=== PATIENT | male | born 1990 | race Caucasian/White ===

== ENCOUNTER 2023-01-24 15:19 | Emergency (ER) | payer OTHER, SELFPAY ==
--- NOTE | 2023-01-24 15:15 | DI.RAD_ITS ---
Exam(s) XR CHEST 2V PA LATERAL EXAM: XR CHEST 2V PA LATERAL CLINICAL HISTORY: RIB PAIN TECHNIQUE: 2D digital imaging was performed. COMPARISON: No exams were available for comparison FINDINGS: Lateral views extremely limited due to patient arm positioning. Leads overlie the chest. HEART: Normal size. Aorta: Not dilated. PULMONARY VASCULATURE: Normal. LUNGS: The lungs appear clear on the frontal view.. PLEURAL SPACE: No pleural effusion or pneumothorax. BONE:Unremarkable for age. Soft tissues: Unremarkable. IMPRESSION: No acute abnormality. DATA REPOSITORY: RADIATION DOSE DELIVERED:
--- NOTE | 2023-01-24 15:15 | DI.CT_ITS ---
Exam(s) CT CAROTID NECK CTA EXAM: CT CAROTID NECK CTA CLINICAL HISTORY: HANGING. TECHNIQUE: Imaging Protocol: Axial CT angiography was performed with multi-slice acquisition and mul ti-planar and/or 3D reconstructions. CONTRAST MATERIAL: Intravenous: Omnipaque 350 Contrast volume:structured data in ml COMPARISON: CR,XR XR CHEST 2V PA LATERAL from 01/24/2023 FINDINGS: Common Carotid: Right: No dissection, occlusion or significant stenosis. Left: No dissection, occlusion or significant stenosis. External Carotid: Right: No dissection, occlusion or significant stenosis. Left: No dissection, occlusion or significant stenosis. Internal Carotid: Right: No dissection, occlusion or significant stenosis. Left: No dissection, occlusion or significant stenosis. Vertebral Artery: Right: No dissection, occlusion or significant stenosis. Left: No dissection, occlusion or significant stenosis. Basilar Artery: No aneurysm, occlusion or significant stenosis. Lung Apices: Normal. Bones: Normal. Soft Tissues: Normal. IMPRESSION: Normal CTA of the neck. No evidence of fracture or vascular injury. RADIATION DOSE DELIVERED: Total DLP Total DLP DATA REPOSITORY: All CT scans at this facility are submitted to the National Radiology Data Registry (NRDR) Dose Index Registry (DIR) with the [employer] (A[employer]). RADIATION OPTIMIZATION: All CT scans at this facility use at least one of these dose optimization te chniques: automated exposure control; mA and/or kV adjustment per patient size (includes targeted exa ms where dose is matched to clinical indication); or iterative reconstruction.
[2023-01-24 15:34] VITALS: BP 131/86; PULSE 78; RESP 13; TEMP 37.1; O2SAT 100
--- NOTE | 2023-01-24 15:43 | ED.GENADUL_ITS ---
Discharge Plan Disposition [facility] Disposition: [facility] Condition: Stable Discharge Details Clinical Impression: Hanging, Rib contusion, Suicidal behavior ED Provider: Cristel Maya Home Meds and New Rx's Prescriptions: No Action buprenorphine-naloxone [Suboxone] 4-1 mg film 1 film sublingual DAILY Discharge Instructions Instructions: Help Prevent Suicide (ED) Additional Instructions: Patient has been cleared after his suicide attempt. Please place the patient on suicide watch and precautions. Patient should be evaluated by mental health services urgently and prior to release from care home. Medical Decision Making Emergent evaluation of hanging incident. Patient also arrives awake and alert, there are no signs of trauma on my physical examination. Given the unclear nature and possible loss of consciousness, I will send for CTA to evaluate. Patient is refusing to keep his c-collar on. A chest x-ray was obtained, there are no signs of pulmonary contusion or rib fracture. The CTA does not demonstrate any carotid injury or dissection. The patient has no signs of alcohol withdrawal. At this time he is in police custody and is medically cleared to return to care home. I have advised that they placed the patient on suicide precautions and suicide watch. And they have mental health services available and that they should evaluate the patient prior to being released from care home Medical Records Medical records reviewed: Yes I reviewed the patient's medical records. Lab Data Lab results reviewed: Yes I reviewed the patient's lab results. HPI General Date/Time Provider Initiated Documentation: 01/24/23 15:25 . HPI Narrative: 32-year-old female with past medical history of alcohol abuse presents for evaluation from the care home facility after a hanging incident. Patient wrapped sheets around his neck and jumped off the top bunk which was approximately 5 feet. He was found on the ground of the cell awake alert and speaking. He apparently hit his side on the bunk on the way down. Patient is unsure if he lost consciousness during this event. He denies any voice change. Reports some pain with swallowing. Denies any neck pain. Reports pain on his left back. He reports that he is a daily alcohol user, last drink last night. Related Data Home Medications Medication Instructions Recorded Confirmed buprenorphine 4 mg-naloxone 1 mg 1 film sublingual DAILY 01/24/23 01/24/23 sublingual film (Suboxone) Allergies Allergy/AdvReac Type Severity Reaction Status Date / Time No Known Allergies Allergy Unverified 01/24/23 15:35 General Stated Complaint: Suicide-Atempt EDUARDO: 2 PFSH All Active Problems Suicidal behavior (Acute) Rib contusion (Acute) Hanging (Acute) Social History Smoking/Tobacco Use Status: Current every day Tobacco Type: cigarettes Smoking risk assessment performed?: Yes Alcohol Intake: current Alcohol Intake frequency: 3 or more drinks per day Alcohol type: hard liquor Drug use: Daily Substance use type: crack/cocaine Details: last ETOH last night, last cocaine 1 week ago Housing: other Exam Narrative Exam Narrative: Review of Systems: All systems reviewed & are unremarkable except as noted in HPI and below: CONSTITUTIONAL: Alert and oriented Well-developed, no acute distress HEENT: NACT EYES: PERRL, no conjunctival injection EARS: no external abnormality NOSE nares patent MOUTH Moist MM NECK: Symmetric, trachea midline, No thyromegaly , no crepitus, no signs of trauma or strangulation injury. C-collar in place THROAT oropharynx clear Normal phonation CVS: RRR, No murmurs or gallops. Peripheral pulses 2+ and equal in all extremities Brisk capillary refill in all extremities. No peripheral edema No signs of bruising or chest wall trauma RESP: Unlabored respiratory effort, Clear to auscultation bilaterally No wheezes rales or rhonchi GI: Soft, Nontender, Nondistended, No organomegaly MSK: Extremities with full range of motion, no deformity or TTP SKIN: Warm, Dry. No rashes or lesions. NEURO: No focal neurologic deficits. floors buffer II-XII grossly intact Sensation grossly intact Normal strength throughout PSYCH: Appropriate mood and affect Course Vital Signs Vital signs: Vital Signs Temperature 37.1 C 01/24/23 15:34 Pulse 78 01/24/23 15:34 Respiratory Rate 13 01/24/23 15:34 Blood Pressure 131/86 01/24/23 15:34 Pulse Oximetry 100 01/24/23 15:34 Temperature 37.1 C 01/24/23 15:34 Temperature Source Oral 01/24/23 15:34 Pulse 78 01/24/23 15:34 Respiratory Rate 13 01/24/23 15:34 Respiratory Effort Normal, Non-Labored 01/24/23 15:36 Blood Pressure 131/86 01/24/23 15:34 Blood Pressure Position Sitting 01/24/23 15:34 Pulse Oximetry 100 01/24/23 15:34 Oxygen Delivery Method Room Air 01/24/23 15:34 Oxygen Flow Rate 0 01/24/23 15:34 Pain Level 7 01/24/23 15:34 Lab/Test Results Lab/Test Results: Laboratory Tests Range/Units 01/24/23 01/24/23 15:25 18:25 Troponin I Cancelled Cancelled PAWSS Have you Been Recently Intoxicated or Drunk Within the Last 30 days?: Yes Have you Ever Experienced Previous Episodes of Alcohol Withdrawal?: Yes Have you ever Experienced Withdrawal Seizures?: Yes Have you ever Experienced Delirium Tremens(DT)s?: Yes Have you ever undergone Alcohol Rehabilitation Treatment (i.e, inpt ot outpatien t treatment programs)?: Yes Have you ever Experienced Blackouts?: Yes Have you ever Combined Alcohol with other Downers within the last 90 days?: Yes Have you ever Combined Alcohol with any other Substance of Abuse during the last 90 days?: Yes Positive Blood Alcohol level on Presentation? [PCS.BAL]: No Evidence of Increased Autonomic Activity (i.e. HR>120, tremor, sweating, agitation, nausea)?: No Result: 8
[2023-01-24 15:57] LABS: Abs Immature Grans 0.08 10^3/uL (0.0-0.06); Absolute Basophil Count 0.07 10^3/uL (0.0-0.2); Absolute Eosinophil Count 0.13 10^3/uL (0.0-0.7); Absolute Lymphocyte Count 1.01 10^3/uL (1.2-3.4); Absolute Monocyte Count 0.55 10^3/uL (0.1-0.8); Absolute Neutrophil Count 5.58 10^3/uL (1.2-6.7); Basophils % 0.9; Eosinophils % 1.8; HCT 50.1 % (40.0-50.0); HGB 17.1 g/dL (13.5-17.5); Immature Grans % 1.1; Lymphocytes % 13.6; MCH 28.6 pg (27.0-33.0); MCHC 34.1 % (32.0-36.0); MCV 84 fL (80-95); MPV 9.9 fL (8.0-11.0); Monocytes % 7.4; Neutrophils % 75.2; Platelet Count 229 10^3/uL (130-400); RBC 5.97 10^6/uL (4.36-5.78); RDW 13.2 % (11.8-14.1); RDW-SD 40.9 fL; WBC 7.42 10^3/uL (4.4-10.8)
[2023-01-24] MEDS: Omnipaque 350 MG/ML 100 ML BTL IJ (15:57)
[2023-01-24] MEDS: Normal Saline - Diluent 50 ML VIAL IJ (15:58)
[2023-01-24 16:06] LABS: ALT 195 U/L (16-63); AST 73 U/L (15-37); Albumin 3.7 g/dL (3.4-5.0); Alkaline Phosphatase 63 U/L (46-116); BUN 15 mg/dL (7-18); Bilirubin, Total 0.3 mg/dL (0.2-1.0); CREATININE 0.8 mg/dL (0.70-1.30); Calcium 9.4 mg/dL (8.5-10.1); Chloride 103 mmol/L (98-107); Estimated GFR 121.34 (mL/min/1.73m2); Glucose 91 mg/dL (74-106); Potassium 4.5 mmol/L (3.5-5.1); Sodium 138 mmol/L (136-145); Total Protein 7.7 g/dL (6.4-8.2)
--- NOTE | 2023-01-24 16:53 | DI.VRAD_ITS ---
PROCEDURE INFORMATION: Exam: XR Chest Exam date and time: 01/24/2023 4:09 PM Age: 32 years old Clinical indication: Screening exam; Other screening; Patient HX: Suicide attempt, hanging TECHNIQUE: Imaging protocol: Radiologic exam of the chest. Views: 2 views. COMPARISON: CT CAROTID NECK CTA 01/24/2023 3:56 PM FINDINGS: Lungs: Unremarkable. No consolidation. Pleural spaces: Unremarkable. No pleural effusion. No pneumothorax. Heart/Mediastinum: Unremarkable. No cardiomegaly. Bones/joints: Unremarkable. IMPRESSION: No acute findings. Dictated and Authenticated by: Juan Ramon Bennett MD. Ordering:[facility] Francesco Johnson MD
--- NOTE | 2023-01-24 16:58 | DI.VRAD_ITS ---
PROCEDURE INFORMATION: Exam: CTA Neck With Contrast Exam date and time: 01/24/2023 3:56 PM Age: 32 years old Clinical indication: Screening exam; Suicide attempt TECHNIQUE: Imaging protocol: Computed tomographic angiography of the neck with contrast. Exam focused on the cervical segments of the vasculature. 3D rendering (Not supervised by radiologist): MIP and/or 3D reconstructed images were created by the technologist. COMPARISON: No relevant prior studies available. FINDINGS: Right common carotid artery: Right common carotid artery is widely patent from origin through carotid bulb. Right internal carotid artery: Right internal carotid artery is widely patent from origin through skull base. Right external carotid artery: No occlusion or stenosis of the origin. Left common carotid artery: Left common carotid artery is widely patent from origin to bulb. Left internal carotid artery: Left internal carotid artery is widely patent from origin through skull base foramen. Left external carotid artery: No occlusion or stenosis of the origin. Right vertebral artery: Right vertebral artery is mildly dominant and widely patent. Left vertebral artery: Left vertebral artery is non dominant and widely patent. Aorta: Aortic arch is unremarkable in appearance. Soft tissues: Soft tissues of the neck are unremarkable. No zhanna hematoma. No soft tissue swelling. No gas or foreign body. Bones/joints: Degenerative cervical spine features. No fracture. No dislocation. Lungs: Lung apices are clear. IMPRESSION: 1. Bilateral carotid and vertebral arteries are patent. No acute traumatic change. 2. Mild degenerative cervical spine changes. No fracture or dislocation. 3. Soft tissues of the neck are unremarkable. No zhanna swelling, foreign body, or soft tissue emphysema. 4. Lung apices are clear. REFERENCES: NASCET CRITERIA. The degree of stenosis in the cervical segment of the internal carotid artery is based on NASCET criteria. Normal is no stenosis. Mild is less than 50% stenosis. Moderate is 50-69% stenosis. Severe is 70% to 99% stenosis. Total occlusion is no detectable patent lumen. Dictated and Authenticated by: Juan Ramon Bennett MD. Ordering:[facility] Francesco Johnson MD
--- NOTE | 2023-01-24 17:48 | NUR.NOTE ---
Nursing Note: Pt remained on clinical research monitor and pulse ox during entire course of stay in ED. Vitals were accidently deleted from monitor prior to printing for documentation. No alarms or concerning vitals while here
== END 2023-01-24 17:46 ==
LOC: ER 20:07
PROVIDERS: Emergency Provider Emergency Medicine
DX: T14.91XA Suicide attempt, initial encounter (principal); S20.222A Contusion of left back wall of thorax, initial encounter; F17.210 Nicotine dependence, cigarettes, uncomplicated; X83.8XXA Intentional self-harm by other specified means, initial encounter; Y93.89 Activity, other specified; Y92.148 Other place in prison as the place of occurrence of the external cause
CPT/HCPCS: 36415; 70498; 80053; 99285; 71046; 84484; 85025; 99284; J3490

== ENCOUNTER 2023-01-25 15:22 | Emergency (ER) | payer BC, SELFPAY ==
[2023-01-25 15:24] VITALS: BP 112/86; PULSE 88; RESP 15; TEMP 36.6; O2SAT 100
--- NOTE | 2023-01-25 15:41 | ED.GENADUL_ITS ---
Discharge Plan Disposition Patient Disposition: Home Discharge Details Clinical Impression: Housing instability Primary Care Provider: Unknown,Unknown ED Provider: Cristel Maya Home Meds and New Rx's Prescriptions: No Action buprenorphine-naloxone [Suboxone] 4-1 mg film 1 film sublingual DAILY Discharge Instructions Additional Instructions: please call 211 to attempt to get housing resources Medical Decision Making Emergent evaluation of patient requesting resources. At this time he has been released from halfway. There is no concern for psychiatric complaint. He denies suicidal or homicidal ideation. He is not requesting psychiatric evaluation or placement. I discussed with our care managers and unfortunately there are no resources for person with the circumstances other than 211. He was advised to call and make a self-referral. He was provided a dinner tray. And he will be discharged in good condition Medical Records Medical records reviewed: Yes I reviewed the patient's medical records. HPI General Date/Time Provider Initiated Documentation: 01/25/23 15:40 . HPI Narrative: 32-year-old gentleman with past medical history including chronic alcohol abuse presents requesting housing. He is was evaluated yesterday in the emergency department after an attempted hanging in halfway. He was medically cleared and returned to halfway. He was released from halfway today and states that he was dropped off here because he cannot go back to [facility] where he was previously staying for rehab. Patient states that he lives 4 hours away and does not have a way to get home. He states that he does not know where to go. He states that he does not want to use this place as a hotel and is just asking for help. Related Data Home Medications Medication Instructions Recorded Confirmed buprenorphine 4 mg-naloxone 1 mg 1 film sublingual DAILY 01/24/23 01/25/23 sublingual film (Suboxone) Allergies Allergy/AdvReac Type Severity Reaction Status Date / Time No Known Allergies Allergy Unverified 01/25/23 15:40 General Stated Complaint: PsychEval EDUARDO: 2 PFSH All Active Problems Housing instability (Acute) Suicidal behavior (Acute) Rib contusion (Acute) Hanging (Acute) Social History Smoking/Tobacco Use Status: Current every day Tobacco Type: cigarettes Smoking risk assessment performed?: Yes Alcohol Intake: current Alcohol Intake frequency: 3 or more drinks per day Alcohol type: hard liquor Drug use: Daily Substance use type: crack/cocaine Details: last ETOH last night, last cocaine 1 week ago Housing: other Exam Narrative Exam Narrative: Review of Systems: All systems reviewed & are unremarkable except as noted in HPI and below Well-developed, no acute distress NACT PERRL, normal conjunctiva RRR Unlabored respiratory effort Nondistended abdomen Extremities w/o deformity, no cyanosis, no edema No rashes or lesions. no focal neurologic deficits Appropriate mood and affect Denies suicidal ideation or homicidal ideation Course Vital Signs Vital signs: Vital Signs Temperature 36.6 C 01/25/23 15:24 Pulse 88 01/25/23 15:24 Respiratory Rate 15 01/25/23 15:24 Blood Pressure 112/86 01/25/23 15:24 Pulse Oximetry 100 01/25/23 15:24 Temperature 36.6 C 01/25/23 15:24 Temperature Source Oral 01/25/23 15:24 Pulse 88 01/25/23 15:24 Respiratory Rate 15 01/25/23 15:24 Respiratory Effort Normal 01/25/23 15:37 Blood Pressure 112/86 01/25/23 15:24 Blood Pressure Position Sitting 01/25/23 15:24 Pulse Oximetry 100 01/25/23 15:24 Oxygen Delivery Method Room Air 01/25/23 15:24 Oxygen Flow Rate 0 01/25/23 15:24 Pain Level 0 01/25/23 15:24 PAWSS Have you Been Recently Intoxicated or Drunk Within the Last 30 days?: Yes Have you Ever Experienced Previous Episodes of Alcohol Withdrawal?: Yes Have you ever Experienced Withdrawal Seizures?: Yes Have you ever Experienced Delirium Tremens(DT)s?: Yes Have you ever undergone Alcohol Rehabilitation Treatment (i.e, inpt ot outpatient treatment programs)?: Yes Have you ever Experienced Blackouts?: Yes Have you ever Combined Alcohol with other Downers within the last 90 days?: Yes Have you ever Combined Alcohol with any other Substance of Abuse during the last 90 days?: Yes Result: 8
--- OUTSIDE RECORDS SUMMARY | 2023-01-25 17:10 | XMS_ITS | Continuity of Care Document ---
Author Name Unknown Organization [facility] Address Unknown Care Team Providers Care Senior Net Software Developer Name Role Phone No Local PCP, No Local PCP Primary Care Physicia n Unavailable Encounter Date(s): 01/19/23 - 01/19/[address] [id number] Encounter Diagnosis Polysubstance dependence(Discharge Diagnosis) - 01/19/23 Alcohol dependence(Discharge Diagnosis) - 01/19/23 Discharge Disposition: Home or Self Care Attending Physician: KAILEE WU MD Admitting Physician: KAILEE WU MD Allergies, Adverse Reactions, Alerts No Known Medication Allergies Medications buprenorphine-naloxone 4 mg-1 mg sublingual film 1 ea, SL, Daily, 0 Refill(s) Start Date: 01/19/23 Status: Ordered Mental Status 01/19/23 Orientation Assessment Oriented x 4 Vital Signs Most recent to oldest [Reference Range]: 1 2 Temperature Oral [35.8-37.3 DegC] 37.0 D egC (01/19/23 10:38 AM) 36.5 DegC (01/19/23 5:54 AM) Peripheral Pulse Rate [60-100 bpm] 85 bp m (01/19/23 10:38 AM) 85 bpm (01/19/23 5:54 AM) Respiratory Rate [14-20 br/min] 16 br/mi n (01/19/23 10:38 AM) 18 br/min (01/19/23 5:54 AM) Blood Pressure 137/84mmHg (01/19/23 10:38 AM) 124/73mmHg (01/19/23 5:54 AM) Social History Social History Type Response Smoking Status Current every day sm oker; Type: Cigarettes entered on: 01/18/23 Sex Male Hospital Discharge Instructions Patient Education 01/19/2023 10:49:29 Substance Use Disorder Substance Use Disorder Substance use disorder occurs when a person's repeated use of drugs or alcohol interferes with the ability to be productive. This disorder can cause problems with mental and physical health. It can affect your ability to have healthy relationships, and it can keep you from being able to meet your responsibilities at work, home, or school. It can also lead to addiction, which is a condition in which you cannot stop using the substance consistently for a period of time. Addiction changes the way the brain works. Because of these changes, addiction is a chronic condition. Substance use disorder can be mild, moderate, or severe. Some commonly misused substances that can lead to this disorder include: ??? Alcohol. ??? Tobacco. ??? Marijuana. ??? Stimulants, such as cocaine and methamphetamine. ??? Hallucinogens, such as LSD and PCP. ??? Opioids, such as some prescription pain medicines and heroin. What are the causes? This condition may develop due to many complex social, psychological, or physical reasons, such as: ??? Stress. ??? Abuse. ??? Peer pressure. ??? Anxiety or depression. What increases the risk? This condition is more likely to develop in people who: ??? Use substances to cope with stress. ??? Have been abused. ??? Have a mental health disorder, such as depression. ??? Have a family history of substance use disorder. What are the signs or symptoms? Symptoms of this condition include: ??? Using the substance for longer periods of time or at a higher dosage than what is normal or intended. ??? Having a lasting desire to use the substance. ??? Being unable to slow down or stop the use of the substance. ??? Spending an abnormal amount of time getting the substance, using the substance, or recovering from using the substance. ??? Using the substance in a way that interferes with work, school, social activities, and personalrelationships. ??? Using the substance even after having negative consequences, such as: ??? Health problems. ??? Legal or financial troubles. ??? Job loss. ??? Relationship problems. ??? Needing more and more of the substance to get the same effect (developing tolerance). ??? Experiencing unpleasant symptoms if you do not use the substance (withdrawal). ??? Using the substance to avoid withdrawal symptoms. How is this diagnosed? This condition may be diagnosed based on: ??? A physical exam. ??? Your history of substance use. ??? Your symptoms. This includes: ??? How substance use affects your life. ??? Changes in personality, behaviors, and mood. ??? Having at least two symptoms of substance use disorder within a 12-month period. ??? Health issues related to substance use, such as liver damage, shortness of breath, fatigue, cough, or heart problems. ??? Blood or urine tests to screen for alcohol and drugs. How is this treated? This condition may be treated by: ??? Stopping substance use safely. This may require taking medicines and being closely monitored for several days. ??? Taking part in group and individual counseling from mental health providers who help people with substance use disorder. ??? Staying at a live-in (residential) treatment center for several days or weeks. ??? Attending daily counseling sessions at a treatment center. ??? Taking medicine as told by your health care provider: ??? To ease symptoms and prevent complications during withdrawal. ??? To treat other mental health issues, such as depression or anxiety. ??? To block cravings by causing the same effects as the substance. ??? To block the effects of the substance or replace good sensations with unpleasant ones. ??? Participating in a support group to share your experience with others who are going through thesame thing. These groups are an important part of long-term recovery for many people. Recovery can be a long process. Many people who undergo treatment start using the substance again after stopping (relapse). If you relapse, that does not mean that treatment will not work. Follow these instructions at home: ??? Take afgx-ueh-ktdizsg and prescription medicines only as told by your health care provider. ??? Do not use any drugs or alcohol. ??? Avoid temptations or triggers that you associate with your use of the substance. ??? Learn and practice techniques for managing stress. ??? Have a plan for vulnerable moments. Get phone numbers of people who are willing to help and whoare committed to your recovery. ??? Attend support groups on a regular basis. These groups include 12-step programs like AlcoholicsAnonymous and Narcotics Anonymous. ??? Keep all follow-up visits. This is important. This includes continuing to work with therapists and support groups. Where to find more information ??? Substance Abuse and Mental Health Services Administration (SAMHSA): www.samhsa.gov ??? National [place] [employer] Mental [employer]ness (MAURISIO): www.maurisio.org Contact a health care provider if: ??? You cannot take your medicines as told. ??? Your symptoms get worse. ??? You have trouble resisting the urge to use drugs or alcohol. Get help right away if: ??? You relapse. ??? You think that you may have taken too much of a drug. The [place] [facility] hotline is . ??? You have signs of an overdose. Symptoms include: ??? Chest pain. ??? Confusion. ??? Sleepiness or difficulty staying awake. ??? Slowed breathing. ??? Nausea or vomiting. ??? A seizure. ??? You have serious thoughts about hurting yourself or someone else. Drug overdose is an emergency. Do not wait to see if the symptoms will go away. Get medical help right away. Call your local emergency services (643 in the [place] Do not drive yourself to the hospital. If you ever feel like you may hurt yourself or others, or have thoughts about taking your own life,get help right away. Go to your nearest emergency department or: ??? Call your local emergency services (579 in the [place] ??? Call a suicide crisis helpline, such as the National Suicide Prevention Lifeline at or 212 in the [place] This is open 24 hours a day in the [place] ??? Text the Crisis Text Line at 057041 (in the [place] Summary ??? Substance use disorder occurs when a person's repeated use of drugs or alcohol interferes with the ability to be productive. ??? Taking part in group and individual counseling from mental health providers is a common treatment for people with substance use disorder. ??? Recovery can be a long process. Many people who undergo treatment start using the substance again after stopping (relapse). A relapse does not mean that treatment will not work. ??? Attend support groups such as Alcoholics Anonymous and Narcotics Anonymous. These groups are animportant part of long-term recovery for many people. This information is not intended to replace advice given to you by your health care provider. Make sure you discuss any questions you have with your health care provider. Document Revised: 09/17/2021 Document Reviewed: 06/20/2021 [employer] Patient Education ?? 2022 [employer] 01/19/2023 10:49:29 Alcohol Use Disorder Alcohol Use Disorder Alcohol use disorder is a condition in which drinking disrupts daily life. People with this condition drink too much alcohol and cannot control their drinking. Alcohol use disorder can cause serious problems with physical health. It can affect the brain, heart, and other internal organs. This disorder can raise the risk for certain cancers and cause problems with mental health, such as depression or anxiety. What are the causes? This condition is caused by drinking too much alcohol over time. Some people with this condition drink to cope with or escape from negative life events. Others drink to relieve pain or symptoms of mental illness. What increases the risk? You are more likely to develop this condition if: ??? You have a family history of alcohol use disorder. ??? Your culture encourages drinking to the point of becoming drunk (intoxication). ??? You had a mood or conduct disorder in childhood. ??? You have been abused. ??? You are an adolescent and you: ??? Have poor performance in school. ??? Have poor supervision or guidance. ??? Act on impulse and like taking risks. What are the signs or symptoms? Symptoms of this condition include: ??? Drinking more than you want to. ??? Trying several times without success to drink less. ??? Spending a lot of time thinking about alcohol, getting alcohol, drinking, or recovering from drinking. ??? Continuing to drink even when it is causing serious problems in your daily life. ??? Drinking when it is dangerous to drink, such as before driving a car. ??? Needing more and more alcohol to get the same effect you want (building up tolerance). ??? Having symptoms of withdrawal when you stop drinking. Withdrawal symptoms may include: ??? Trouble sleeping, leading to tiredness (fatigue). ??? Mood swings of depression and anxiety. ??? Physical symptoms, such as a fast heart rate, rapid breathing, high blood pressure (hypertension), fever, cold sweats, or nausea. ??? Seizures. ??? Severe confusion. ??? Feeling or seeing things that are not there (hallucinations). ??? Shaking movements that you cannot control (tremors). How is this diagnosed? This condition is diagnosed with an assessment. Your health care provider may start by asking threeor four questions about your drinking, or he or she may give you a simple test to take. This helps to get clear information from you. You may also have a physical exam or lab tests. You may be referred to a substance abuse counselor. How is this treated? With education, some people with alcohol use disorder are able to reduce their drinking. Many with this disorder cannot change their drinking behavior on their own and need help from substance use specialists. These specialists are counselors who can help diagnose how severe your disorder is and what type of treatment you need. Treatments may include: ??? Detoxification. Detoxification involves quitting drinking with supervision and direction of health care providers. Your health care provider may prescribe prescription medicines within the first week to help lessen withdrawal symptoms. Alcohol withdrawal can be dangerous and life-threatening. Detoxification may be provided in a home, community, or primary care setting, or in a hospital or [facility] t[facility] use treatment facility. ??? Counseling. This may involve motivational interviewing (TN), family therapy, or cognitive behavioral therapy (CBT). It is provided by substance use treatment counselors or professional therapists. A counselor can address the things you can do to change your drinking behavior and how to maintainthe changes. Talk therapy aims to: ??? Identify your positive motivations to change. ??? Identify and avoid the things that trigger your drinking. ??? Help you learn how to plan your behavior change. ??? Develop support systems that can help you sustain the change. ??? Medicines. Medicines can help treat this disorder by: ??? Decreasing cravings. ??? Decreasing the positive feeling you have when you drink. ??? Causing an uncomfortable physical reaction when you drink (aversion therapy). ??? [place] help groups such as Alcoholics Anonymous (AA). These groups are led by people who have quit drinking. The groups provide emotional support, advice, and guidance. Some people with this condition benefit from a combination of treatments provided by specialized substance use treatment centers. Follow these instructions at home: Medicines ??? Take uduz-vjs-heakbfa and prescription medicines only as told by your health care provider. ??? Ask before starting any new medicines, herbs, or supplements. General instructions ??? Ask friends and family members to support your choice to stay sober. ??? Avoid situations where alcohol is served. ??? Create a plan to deal with tempting situations. ??? Attend support groups regularly. ??? Practice hobbies or activities you enjoy. ??? Do not drink and drive. ??? Keep all follow-up visits as told by your health care provider. This is important. How is this prevented? If you drink alcohol: ??? Limit how much you use to: ??? 0???1 drink a day for non women. ??? 0???2 drinks a day for men. ??? Be aware of how much alcohol is in your drink. In the [place] one drink equals one 12 oz bottle of beer (355 mL), one 5 oz glass of wine (148 mL), or one 1?? oz glass of hard liquor (44 mL). ??? If you have a mental health condition, seek treatment. Develop a healthy lifestyle through: ??? Meditation or deep breathing. ??? Exercise. ??? Spending time in nature. ??? Listening to music. ??? Talking with a trusted friend or family member. ??? If you are an adolescent: ??? Do not drink alcohol. Avoid gatherings where you might be tempted. ??? Do not be afraid to say no if someone offers you alcohol. Speak up about why you do not want todrink. Set a positive example for others around you by not drinking. ??? Build relationships with friends who do not drink. Where to find more information ??? Substance Abuse and Mental Health Services Administration: samhsa.gov ??? Alcoholics Anonymous: aa.org Contact a health care provider if: ??? You cannot take your medicines as told. ??? Your symptoms get worse or you experience symptoms of withdrawal when you stop drinking. ??? You start drinking again (relapse) and your symptoms get worse. Get help right away if: ??? You have thoughts about hurting yourself or others. If you ever feel like you may hurt yourself or others, or have thoughts about taking your own life,get help right away. Go to your nearest emergency department or: ??? Call your local emergency services (911 in the [place] ??? Call a suicide crisis helpline, such as the National Suicide Prevention Lifeline at or 269 in the [place] This is open 24 hours a day in the [place] ??? Text the Crisis Text Line at 751376 (in the [place] Summary ??? Alcohol use disorder is a condition in which drinking disrupts daily life. People with this condition drink too much alcohol and cannot control their drinking. ??? Treatment may include detoxification, counseling, medicines, and support groups. ??? Ask friends and family members to support you. Avoid situations where alcohol is served. ??? Get help right away if you have thoughts about hurting yourself or others. This information is not intended to replace advice given to you by your health care provider. Make sure you discuss any questions you have with your health care provider. Document Revised: 01/16/2022 Document Reviewed: 01/11/2020 [employer] Patient Education ?? 2022 [employer] Patient Care team information Care Team Personnel Name: No Local PCP No Local PCP, Member Role: Primary Care Physician Name: Milton Rodriguez LPN Position: ED Nurse/ELECTRICAL PROJECT ENGINEER Member Role: ED Nurse Name: MACARENA RIVERA PA-C Position: Physician - ED Member Role: ED Physician Independent Marketing Consultant Address: Address: [address] [place] [phone] [place]
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
--- OUTSIDE RECORDS SUMMARY | 2023-01-25 17:10 | XMS_ITS | Continuity of Care Document ---
Author Name Unknown Organization [facility] Address Unknown Care Team Providers Care Apartment Rental Clerk Name Role Phone No Local PCP, No Local PCP Primary Care Physicia n Unavailable Encounter Date(s): 01/18/23 - 01/19/23 [facility] [address] [place] [address]- Encounter Diagnosis Cocaine abuse(Discharge Diagnosis) - 01/18/23 Alcohol use disorder(Discharge Diagnosis) - 01/18/23 Discharge Disposition: Home or Self Care Attending Physician: MACARENA MARY MD Admitting Physician: MACARENA MARY MD Allergies, Adverse Reactions, Alerts No Known Medication Allergies Medications buprenorphine-naloxone 4 mg-1 mg sublingual film 1 ea, SL, Daily, 0 Refill(s) Start Date: 01/19/23 Status: Ordered Mental Status 01/18/23 Orientation Assessment Oriented x 4 Results Laboratory List Name Date Drug Screen Urine (Urine Drug Screen) Most recent to oldest [Reference Range]: 1 Benzodiazepines Screen Not Detected *NA* (01/18/23 9:56 PM) Cocaine Screen Detected *NA* (01/18/23 9:56 PM) Opiate Screen Not Detected 1 *NA* (01/18/23 9:56 PM) Phencyclidine Screen Not Detected *NA* (01/18/23 9:56 PM) Tricyclics Screen Not Detected 2 *NA* (01/18/23 9:56 PM) Amphetamines Screen Not Detected 3 *NA* (01/18/23 9:56 PM) Barbiturates Screen Not Detected *NA* (01/18/23 9:56 PM) T-Cannabinol Screen Detected *NA* (01/18/23 9:56 PM) Methamphetamines Screen Not Detected *NA* (01/18/23 9:56 PM) Methadone Screen Not Detected *NA* (01/18/23 9:56 PM) Oxycodone Screen Not Detected *NA* (01/18/23 9:56 PM) Buprenorphine Screen Not Detected *NA* (01/18/23 9:56 PM) Breath Alcohol POC 0.174 mmol/L (01/18/23 10:11 PM) 1Interpretive Data: This screening test is insensitive to some opiates including meperidine, hydrocodone, and oxymorphone and may not detect low therapeutic levels of other drugs. More sensitive testing is available to detect the presence of specific drugs as a send out test. Any result that is not expected should be confirmed using another method. 2Interpretive Data: Significant cross reactivity with Cyclobenzaprine (Flexaril) can occur causing false positive TCA results. If cross reactivity is suspected, confirmatory testing is available upon request. 3Interpretive Data: This drug screen result provides preliminary analytical test results. Any positive result should be confirmed with a more specific analytical method such as High Pressure Liquid Chromatography/Mass Spectrometry (GC/MS) The Urine Drig Screen Panel is for patient care purposes only. Results are not valid for any other use. Results will be detected at the following cut-off concentrations: Amphetamine 500 ng/mL Barbituates 200 ng/mL Benzodiazepines 150 ng/mL Cocaine 150 ng/mL THC 50 ng/mL Methampethamines 500 ng/mL Opiates 100 ng/mL PCP 25 ng/mL TCA 300 ng/mL Methadone 200 ng/mL Vital Signs Most recent to oldest [Reference Range]: 1 Temperature Oral [35.8-37.3 DegC] 36.7 D egC (01/18/23 9:37 PM) Peripheral Pulse Rate [60-100 bpm] 94 bp m (01/18/23 9:37 PM) Respiratory Rate [14-20 br/min] 18 br/mi n (01/18/23 9:37 PM) Blood Pressure 134/98mmHg (01/18/23 9:37 PM) Social History Social History Type Response Smoking Status Current every day simón waller; Type: Cigarettes entered on: 01/18/23 Sex Male Hospital Discharge Instructions Patient Education 01/19/2023 01:36:03 Substance Use Disorder Substance Use Disorder Substance [...] Follow these instructions at home: ??? Take xtjq-qxk-xodjetb and prescription medicines only as told by [...] Health Services Administration (SAMHSA): www.samhsa.gov ??? National [employer] on Mental Illness (MAURISIO): www.maurisio.org Contact a health care provider if: ??? You cannot take your medicines as told. ??? Your symptoms get worse. ??? You have trouble resisting the urge to use drugs or alcohol. Get help right away if: ??? You relapse. ??? You think that you may have taken too much of a drug. The [facility] hotline is . ??? [...] right away. Call your local emergency services (697 in the [place] Do not drive yourself to the hospital. If you ever feel like you may hurt yourself or others, or have thoughts about taking your own life,get help right away. Go to your nearest emergency department or: ??? Call your local emergency services (152 in the [place] ??? Call a suicide crisis helpline, such as the National Suicide Prevention Lifeline at or 049 in the [place] This is open 24 hours a day in the [place] ??? Text the Crisis Text Line at 115364 (in the [place] Summary ??? Substance use [...] provider. Document Revised: 09/17/2021 Document Reviewed: 06/20/2021 Elsevier Patient Education ?? 2022 [employer] Patient Care team information Care Team Personnel Name: No Local PCP No Local PCP, Member Role: Primary Care Physician Name: MACARENA MARY MD Position: Physician - ED Member Role: Attending Physician Address: Address: [address] [place] [id number] Name: Cassy Caceres RN Position: ED Nurse Management Member Role: ED Nurse
--- OUTSIDE RECORDS SUMMARY | 2023-01-25 17:10 | XMS_ITS | Continuity of Care Document ---
Author Name Unknown Organization [facility] Address [address] [place] [address] Care Team Providers Care Franchise Development Manager Name Role Phone NO PCP, Primary Care Physician Unavailab le Encounter [facility] Acct Nbr Pool [id number] Date(s): 01/19/22 - 01/19/[address] [address] Encounter Diagnosis Cough(Discharge Diagnosis) - 01/19/22 Sinusitis(Discharge Diagnosis) - 01/19/22 Discharge Disposition: 01 Home Attending Physician: LAQUITA HUSTON Allergies, Adverse Reactions, Alerts No Known Allergies Medications Augmentin 875 mg-125 mg oral tablet = 1 TAB, PO, [id number], # 20 TAB, 0 Refill(s), Pharmacy: [facility] #[id number], 170, cm, 01/19/22 16:22:00 EST, Height/Length Measured Start Date: 01/19/22 Stop Date: 01/29/22 Status: Ordered Medrol 4 mg oral tablet = 1 PKT, PO, As Directed, as directed on package labeling, # 21 TAB, 0 Refill(s), Pharmacy: [facility] #[id number], 170, cm, 01/19/22 16:22:00 EST, Height/Length Measured [...] Dates Health Status Clini vikram Service Informant Cough Discharge Diagnosis 01/19/22 Non-Specified Sinusitis Discharge Diagnosis 01/19/22 Vital Signs Most recent to oldest [Reference Range]: 1 Peripheral Pulse Rate [60-100 bpm] 67 bp m (01/19/22 4:22 PM) Respiratory Rate [14-20 br/min] 20 br/mi n (01/19/22 4:22 PM) Blood Pressure [90-140/60-90 mmHg] 111/7 3mmHg (01/19/22 4:22 PM) Height inches 66.9 in (01/19/22 4:22 PM) Dosing Weight 68 KG (01/19/22 4:22 PM) Body Mass Index Measured 23.53 kg/m2 (01/19/22 4:22 PM) Social History Social History Type Response Smoking Status Never smoker entered on: 01/19/22 Sex Male Family medicine Note * LAQUITA HUSTON: PERFORM, MODIFY, MODIFY Event Display: Family Practice Office/Clinic Note Authored Date: [id number] Demographics Name:KIRT DIOP Date of :1990 Chief Complaint covid symptoms x1 week. negative at home test yesterday. children had croup last week. History of Present Illness Patient reports that he has had COVID symptoms for about a week.?? Symptoms started??in his chest??and now??are in his sinuses.?? His nose is burning and very tender,??he has significant thick green discharge.?? His children had croup last week.?? He took a home COVID test today that was negative.?? Denies fevers, nausea, vomiting, diarrhea.?? He is fatigued and does not feel well.?? He is a vapor but does not smoke cigarettes. Review of Systems Relevant review of systems is negative other than what is stated??in HPI above. Physical Exam Vitals & Measurements T:??36.6?C (Temporal Artery)?? HR:??67(Peripheral)?? RR:??20?? BP:??111/73?? SpO2:??95%?? HT:??170??cm?? WT:??68??KG?? BMI:??23.53?? General:??Mildly ill-appearing 31-year-old in no distress in office. HEENT: atraumatic, PERRLA, moist mucosa, nasal mucosa with significant inflammation and green thickdischarge,??bilateral nares??with erythema??and tenderness,??normal pharynx, normal tonsils, normaltongue, maxillary sinus tenderness, TM??with effusion,??but without erythema or bulging. Neck: Trachea midline. No masses or lymphadenopathy. Respiratory: Respiratory rate normal without use of accessory muscles. No rales, rhonchi or wheezing. ??Clear to auscultation. Cardiovascular: Regular rate and rhythm. No murmurs or edema. Abdomen: Soft, non-tender, non-distended, normal bowel sounds in all quadrants, no hepatosplenomegaly. Genitourinary: No inguinal hernia Musculoskeletal: Full ROM to upper and lower extremities. Strength 5/5 bilaterally. No obvious deformity. Neurological: DTR 2+ and equal to bilateral UE and LE. Alert and oriented X3. Cranial nerves III-XII intact. Integumentary: warm, dry, and pink, with no rash, purpura, or petechia ?? POC Co-VID 19 by PCR: NEGATIVE POC Influenza A by PCR: NEGATIVE POC Influenza B by PCR: NEGATIVE POC RSV by PCR: NEGATIVE Assessment/Plan 1.??Sinusitis ??Respiratory panel results:??Negative for COVID, flu, RSV. ?? We will treat patient for sinusitis with Augmentin twice a day for 10 days and methylprednisolone as directed.?? Symptomatic treatment as outlined below. ?? Rest, increase fluids. Wash your hands with soap and water or an alcohol based hand circle saw operator frequently. Treat a low grade fever under 101 degrees, body aches or discomfort??with acetaminophen (Tylenol) and/or ibuprofen (Motrin/Advil) as directed per the label based on age/weight. Over the counter cough and cold medications based on your symptoms can be helpful. Make sure you always follow the directions. You can also use non-pharmaceutical measures including tea with honey (if over age one), warm steaminhalation/humidifier, Vicks Vaporub to chest/neck and cough lozenges, saline nasal spray. Follow up with your primary care physician or come back to??urgent care with any new or worsening symptoms. ?? Patient and/or caregiver??advised to return to urgent care or follow-up with PCP??if signs and symptoms do not improve??or worsen??with treatment as described. ??Patient discharged home??in??stable condition. Patient and/or caregiver??verbalizes understanding??of discharge instructions and when to follow up with a healthcare provider. ?? Ordered: amoxicillin-clavulanate, = 1 TAB, PO, [id number], # 20 TAB, 0 Refill(s), Pharmacy: [facility] #[id number], 170, cm, 01/19/22 16:22:00 EST, Height/Length Measured methylPREDNISolone, = 1 PKT, PO, As Directed, as directed on package labeling, # 21 TAB, 0 Refill(s), Pharmacy: [facility] #[id number], 170, cm, 01/19/22 16:22:00 EST, Height/Length Measured ?? Cough ?? Problem List/Past Medical History Ongoing Sore throat Historical No qualifying data Medications Suboxone 8 mg-2 mg sublingual film, 1 [...]
== END 2023-01-25 17:39 | disposition home or self-care (01) ==
LOC: ER 17:08
PROVIDERS: Emergency Provider Emergency Medicine
DX: F10.10 Alcohol abuse, uncomplicated (principal); F17.210 Nicotine dependence, cigarettes, uncomplicated
CPT/HCPCS: 99282